=== PATIENT | female | born 1995 | race Caucasian/White ===

== ENCOUNTER 2021-07-29 14:36 | Emergency (ER) | payer OTHER ==
[~2021-07-29] VITALS: Ht 154.9 cm; Wt 59.0 kg
[~2021-07-29 14:36] MED LIST: BIRTH CONTROL
[2021-07-29] MEDS ORDERED: Norco 5-325 Ta1 EACH PO (16:17)
== END 2021-07-29 16:23 | disposition home or self-care (01) ==
LOC: ER 14:36
DX: S90.32XA Contusion of left foot, initial encounter (principal); W22.8XXA Striking against or struck by other objects, initial encounter
CPT/HCPCS: 73630; 99283-25